=== PATIENT | female | born 1990 | race Hispanic/Latino ===

== ENCOUNTER 2024-11-26 08:38 | Emergency (ER) | payer OTHER ==
[~2024-11-26] VITALS: Ht 154.9 cm; Wt 67.1 kg
[2024-11-26] MEDS ORDERED: IOPAMIDOL 370 MG/ML 100 ML INFUS..BTL INJ ONE (09:30)
[2024-11-26] MEDS: KETOROLAC TROMETHAMINE 30 MG/ML VIAL IV STA (09:45)
[2024-11-26] MEDS: LACTATED RINGER'S 1,000 ML INJ ONE ×2 (09:45→11:54)
[2024-11-26] MEDS ORDERED: CEFTRIAXONE 1 GM VIAL INJ ONE (10:00)
[2024-11-26] MEDS ORDERED: CEFPODOXIME PR200 MG PO (11:48)
[2024-11-26] MEDS ORDERED: KETOROLAC TROME10 MG PEG (11:50)
[2024-11-26 12:41] LABS: CLARITY,URINE CLEAR (CLEAR); COLOR,URINE YELLOW (YELLOW); LEUKOCYTE ESTERASE ,URINE TRACE (NEGATIVE); NITRITE,URINE POSITIVE (NEGATIVE); PH,URINE 6 (5 - 7)
[2024-11-26 12:42] LABS: BACTERIA,URINE MODERATE /HPF; BILIRUBIN,URINE NEGATIVE (NEGATIVE); EPITHELIAL CELLS,URINE FEW /LPF; GLUCOSE, URINE NEGATIVE (NEGATIVE); KETONES,URINE NEGATIVE (NEGATIVE); PROTEIN,URINE DIPSTICK 1+ (NEGATIVE); RBC,URINE 0-5 /HPF (0-5); URINE UROBILINOGEN 0.2 mg/dL (0.2 - 1); WBC,URINE (MAN) >50 /HPF (0-5)
[2024-11-26 13:13] VITALS: PULSE 76; RESP 14; TEMP 98.2; O2SAT 99
== END 2024-11-26 13:13 | disposition home or self-care (01) ==
LOC: FSED 08:50
DX: M54.6 Pain in thoracic spine (principal); M54.50 Low back pain, unspecified; N12 Tubulo-interstitial nephritis, not specified as acute or chronic; Z11.52 Encounter for screening for COVID-19
CPT/HCPCS: 0223U; 74177; 80048; 80076; 81001; 81003; 81025; 85025; 87086; 87400; 96374; 99284; J0696; J1885; J7121; Q9967; 87186